=== PATIENT | female | born 1975 | race Caucasian/White ===

== ENCOUNTER 2019-04-14 12:24 | Emergency (ER) | payer BC, SELFPAY ==
--- NOTE | ~2019-04-14 | XR_ITS ---
EXAMINATION: XR chest 2V DATE: 04/14/2019 15:11 INDICATION: Chronic cough. TECHNIQUE: Frontal and lateral views of the chest were obtained on 3 radiographs. COMPARISON: None. FINDINGS: The chest demonstrates clear lungs without pneumonia, pleural effusion, or pneumothorax. Th e heart size is normal. IMPRESSION: 1. No acute cardiopulmonary disease. Reviewed, dictated and finalized at location A. [facility]
[2019-04-14 12:58] VITALS: BP 153/87; PULSE 75; RESP 16; TEMP 36.7
--- NOTE | 2019-04-14 14:57 | PC.NURSE ---
1400 provider with pt on down time charting 1410 albuterol neb began for cough 1407 neb complete. pt states no difference
--- NOTE | 2019-04-14 15:09 | ED.URI ---
HPI - URI/Sore Throat General Chief Complaint: Upper Respiratory Infection Stated Complaint: Cough Time Seen by Provider: 04/14/19 13:40 Source: patient Mode of arrival: ambulatory Limitations: no limitations History of Present Illness HPI Narrative: Karen Timmons is a 43-year-old female who denies any PMH came to urgent care for chronic cough that started after Thanksgiving. It is dry, nonproductive, keeps her up at night. States has no history of asthma Related Data Home Medications Medication Instructions Recorded Confirmed No Home Medications 04/14/19 04/14/19 Allergies Allergy/AdvReac Type Severity Reaction Status Date / Time Penicillins Allergy Unknown UNKNOWN Verified 05/14/13 11:38 Review of Systems Review of Systems: Narrative: CONSTITUTIONAL: Denies fever, chills, sweats. EYES: Denies visual changes, redness, discharge. ENT: Denies rhinorrhea, congestion, sore throat, otalgia. CARDIOVASCULAR: Denies chest pain, palpitations, edema. RESPIRATORY: Denies dyspnea, wheezing, dry raspy cough GASTROINTESTINAL: Denies abdominal pain, nausea, vomiting, diarrhea. GENITOURINARY: Denies dysuria, hematuria, abnormal discharge SKIN: Denies rash or itching. MUSCULOSKELETAL: Denies acute back pain, joint pain, or myalgia. NEUROLOGIC: Denies numbness, or focal weakness. PSYCHIATRIC: Denies anxiety or depression. [facility] Family History Family History (Updated 04/14/19 @ 15:15 by Letha Epperson CNP) Other No active medical problems Social History Social History (Updated 04/14/19 @ 15:15 by Letha Epperson CNP) Smoking status: Never smoker Alcohol intake: never Comments At time of signature, I agree with nursing past medical, surgical, social and family history. There is no relevant family history pertinent to the presenting complaint. Exam Narrative: Exam Narrative: GENERAL: This is a well-nourished, well-developed patient, in mild distress. HEAD: normocephalic, atraumatic. EYES: PERRL. Sclera clear/white. Vision is grossly intact. EARS: External ears normal,. Hearing grossly intact. NOSE: External nose normal with no obvious nasal discharge, nares without redness, no rhinorrhea. THROAT: Mucous membranes moist, posterior pharynx clear. NECK: Neck supple, non-tender CARDIOVASCULAR: Regular rate and rhythm without murmurs, gallops, or rubs. RESPIRATORY: coarseto auscultation. Breath sounds equal bilaterally. No wheezes, rales, or rhonchi. Dry cough GASTROINTESTINAL: Abdomen soft, non-tender, nondistended. SKIN: warm, intact with no suspicious lesions or rash, good texture and turgor. NEURO: awake, alert, and oriented to person, place and time. There were no obvious focal neurologic abnormalities. Steady gait EXTREMITIES: Normal range of motion. BACK: Nontender without deformity or crepitance. No flank tenderness. Course Course Emergency Course: Initially unable to get x-ray as system down, so given albuterol inhaler to see if would help our if symptoms were reactive respiratory disease-albuterol did not help Blood pressure is elevated patient referred back to primary for check of blood pressure Chest x-ray done-negative for acute pathology Patient given codeine cough syrup and a trial of Protonix, to rule out GERD, to follow-up with PCP Vital Signs Vital signs: Vital Signs Temperature 98.0 F 04/14/19 12:58 Pulse Rate 75 04/14/19 12:58 Respiratory Rate 16 04/14/19 12:58 Blood Pressure 153/87 H 04/14/19 12:58 Temperature 98.0 F 04/14/19 12:58 Pulse Rate 75 04/14/19 12:58 Respiratory Rate 16 04/14/19 12:58 Blood Pressure 153/87 H 04/14/19 12:58 MDM - URI/Sore Throat Differential Diagnosis Differential diagnosis: Likely viral infection, bronchitis and other (GERD) Discharge Plan Discharge Clinical Impression: Cough in adult Patient Disposition: Home, Self-Care Condition: Stable Instructions: Gastroesophageal Reflux Disease (DC), Acute Cough (E
== END 2019-04-14 15:33 | disposition home or self-care (01) ==
PROVIDERS: Emergency Provider Nurse Practitioner
DX: R05 Cough (principal)
CPT/HCPCS: 71046; 99203; G0463